=== PATIENT | female | born 1945 | race Caucasian/White ===

== ENCOUNTER → 2016-10-08 | Outpatient (CLI) | payer OTHER ==
[2016-09-02 09:16] VITALS: BP 130/70
[2016-10-08 14:18] LABS: CRYPTOSPORIDIUM PARVUM ANTIGEN NEGATIVE (NEGATIVE); GIARDIA LAMBLIA ANTIGEN NEGATIVE (NEGATIVE)
== END ==
LOC: LAB 12:00
PROVIDERS: ATTEND Internal Medicine
DX: R19.5 Other fecal abnormalities (principal); R19.7 Diarrhea, unspecified
CPT/HCPCS: 82270; 87045; 87205; 87328; 87329; 87336; 87427; 87493; 87899

== ENCOUNTER 2016-11-26 21:52 | Emergency (ER) | payer OTHER ==
[2016-11-26 22:02] VITALS: BP 159/82; BMI 33.3
--- NOTE | 2016-11-26 22:24 | DR.NAUSEAF ---
HPI - Time Seen Time seen: 22:13 - Primary Care Physician Primary Care Physician: HELDER - HPI Comment HPI Comment: SIMILAR PAIN ON AND OFF. TONIGHT PAIN SEVERE AND PERSISTED LONGER. IMPROVE SLIGHTLY AFTER PATIENT VOMITED TIMES ONE IN ED. NO FEVER. NO MELENA OR HEMATEMESIS. DENIES DYSURIA. - Complaints Chief Complaint Doctors Comments: ABDOMINAL PAIN, NAUSEA AND VOMITING TONIGHT. Chief Complaint:: "HURTING IN STOMACH AND CHEST FOR LAST 3-4 HOURS. CHILLS, AND NAUSEA VOMITING STARTED WHEN WE GOT HERE. HAS BEEN TREATING HER FOR ACID REFLUX." - Reviewed Nurses Notes Reviewed: Yes - Source History Provided: Patient - Mode of Arrival Mode of Arrival: Wheelchair - Timing Onset of Chief Complaint: 11/26/16 - Context History of: Abdominal Operation - Quality Quality: Bilious - Associated Signs and Symptoms Abdominal Pain Quality: Cramping Symptoms: Abdominal Pain PMH - PMH Past Medical History: Yes Past Medical History: Anxiety, CVA, Dementia, GERD, Hypertension, Hypothyroidism , [place] Past Surgical History: Yes Surgical History: Appendectomy, Cholecystectomy, Hysterectomy, Joint Replacement , Ortho Surgery, Tonsillectomy - Family History History of Family Medical Conditions: Yes Family Medical History: [place], Coronary Artery Disease, Sudden Cardiac , Hypertension - Social History Does patient currently use any type of tobacco product: No Have you used tobacco products in the last 12 months: No Type of Tobacco Use: None Alcohol Use: None Do you use any recreational Drugs:: No Lives With: Spouse Lives Where: Home - infectious screening Have you traveled outside the country in the last 6 months?: No Isolation: Standard ROS - Review of Systems Constitutional: Chills, Weakness, Fatigue. negative: Diaphoresis, Fever, Loss of Appetite Eyes: No Symptoms Reported. negative: Eye Pain, Discharge ENTM: Nose Congestion. negative: Ear Pain, Nose Discharge, Throat Pain Respiratoy: Short of Breath. negative: Productive Cough, Wheezing, Hemoptysis Cardiovascular: Chest Pain. negative: Edema, Palpitations, Syncope Gastrointestinal/Abdominal: Abdominal Pain, Nausea, Vomiting. negative: Diarrhea Genitourinary: No Symptoms Reported. negative: Dysuria, Frequency, Hematuria Neurological: Headache, Weakness. negative: Dizziness Musculoskeletal: Back Pain, Joint Swelling, Muscle Pain Integumentary: No Symptoms Reported Hematologic/Lymphatic: No Symptoms Reported Endocrine: No Symptoms Reported All Other Systems: Reviewed and Negative PE - Vital Signs Vitals: Temperature 98.2 F Pulse Rate 100 Respiratory Rate 18 Blood Pressure [Right Arm] 130/70 Blood Pressure [Left Arm] 147/81 Blood Pressure 159/82 O2 Sat by Pulse Oximetry 100 - General Limitations: No Limitations General Appearance: Alert, In No Apparent Distress - Head Head Exam: Normal Inspection - Eyes Eye exam: Normal Appearance, PERRL, EOMI. negative: Scleral Icterus, Conjunctival Injection - ENT ENT Exam: Normal External Ear Exam - Neck Neck Exam: Trachea Midline. negative: Tenderness, Meningismus, Lymphadenopathy - Chest Chest Inspection: Symmetric Chest Wall Rise - Respiratory Respiratory Exam: Normal Lung Sounds Bilat Respiratory Exam: Bilateral Rhonchi, Upper Rhonchi, Lower Rhonchi - Cardiovascular Cardiovascular Exam: Regular Rate, Normal Rhythm, Normal Heart Sounds - Abdominal Exam Abdominal Exam: Normal Bowel Sounds, Soft, Tenderness Abdominal Tenderness: Diffuse, Moderate - Rectal Rectal Exam: Deferred - External Exam: Female: Deferred : Speculum Exam (Female): Deferred : Bimanual Exam (female): Deferred - Extremities Extremities Exam: Normal Inspection - Back Back Exam: Paraspinal Tenderness - Neurologic Neurological Exam: Alert, Oriented X3, CN II-XII Intact, Reflexes Normal. negative: Motor Sensory Deficit - Psychiatric Psychiatric Exam: Anxious - Skin Skin Exam: Normal Color MDM - Additional Information Obtained Additional Information Obtained From: Family - Differential Diagnosis Differential Diagnosis: Considerations may Include:: Bowel Obstruction, Gastritis, Gastroenteritis, Pancreatitis, PUD, Urinary Tract Infection, Urolithiasis Course - Treatment Treatment: SEE ORDERS - Education/Counseling Education/Counseling: Patient, Family, Education Educated On: Treatment, Diagnosis, Needs for Follow Up ROR - Labs Reviewed Laboratory Results Reviewed?: Yes Result Diagrams: 11/26/16 22:32 11/26/16 22:32 Laboratory: WBC 8.5 X10^3/uL (3.6-10.0) 11/26/16 22:32 RBC 3.44 X10^6/uL (3.5-5.4) L 11/26/16 22:32 Hgb 9.6 g/dL (12.0-16.0) L 11/26/16 22:32 Hct 29.0 % (36.0-47.0) L 11/26/16 22:32 MCV 84.2 fL (80.0-100.0) 11/26/16 22: MCH 27.8 pg (27.0-34.0) 11/26/16 22: MCHC 33.0 g/dL (33.0-35.0) 11/26/16 22:32 RDW 15.4 % (11.6-16.5) 11/26/16 22:32 Plt Count 232 X10^3/uL (150.0-450.0) 11/26/16 22:32 MPV 8.6 fL (7.4-11.0) 11/26/16 22:32 Neut % 87.2 % (42.0-75.0) H 11/26/16 22: Lymph % 7.8 % (21.0-51.0) L 11/26/16 22:32 [place] % 3.5 % (0.0-13.0) 11/26/16 22: Eos % 1.2 % (0.9-2.9) 11/26/16 22: Baso % 0.3 % (0.2-1.0) 11/26/16 22:32 Neut # 7.4 x10^3/uL (2.2-4.8) H 11/26/16 22:32 Lymph # 0.7 X10^3/uL (1.3-2.9) L 11/26/16 22:32 [place] # 0.3 x10^3/uL (0.3-0.8) 11/26/16 22: Eos # 0.1 x10^3/uL (0.0-0.2) 11/26/16 22: Baso # 0.0 X10^3/uL (0.0-0.1) 11/26/16 22: Absolute Nucleated RBC 0.0 /100WBC 11/26/16 22:32 Sodium 143 mmol/L (136-145) 11/26/16 22:32 Corrected Sodium 144 mmol/L (136-145) 11/26/16 22:32 Potassium 4.6 mmol/L (3.5-5.1) 11/26/16 22:32 Chloride 107 mmol/L (98-107) 11/26/16 22:32 Carbon Dioxide 25.6 mmol/L (21-32) 11/26/16 22:32 BUN 20 mg/dL (7-18) H 11/26/16 22:32 Creatinine 1.44 mg/dL (0.55-1.02) H 11/26/16 22:32 Est GFR (MDRD) Af Amer 46 (>60) L 11/26/16 22:32 Est GFR (MDRD) Non-Af 38 (>60) L 11/26/16 22:32 Glucose 126 mg/dL (65-99) H 11/26/16 22:32 Calcium 8.7 mg/dL (8.5-10.1) 11/26/16 22:32 Corrected Calcium 9.3 mg/dL (8.5-10.1) 11/26/16 22:32 Total Bilirubin 1.00 mg/dL (0.2-1.0) 11/26/16 22:32 AST 313 Units/L (15-37) H 11/26/16 22:32 ALT 202 Units/L (12-78) H 11/26/16 22:32 Alkaline Phosphatase 348 Units/L (46-116) H 11/26/16 22:32 Creatine Kinase 37 Units/L (26-192) 11/26/16 22:32 CK-MB (CK-2) < 1.0 ng/mL (0-4.0) 11/26/16 22:32 CK/CKMB % Calc 2.7 % (<4) 11/26/16 22:32 Troponin I < 0.02 ng/mL (0-1.5) 11/26/16 22:32 Total Protein 7.0 g/dL (6.4-8.2) 11/26/16 22:32 Albumin 3.3 g/dL (3.4-5.0) L 11/26/16 22:32 Globulin 3.7 g/dL (2.5-4.5) 11/26/16 22:32 Albumin/Globulin Ratio 0.9 Ratio (1.1-2.1) L 11/26/16 22:32 Amylase 35 Units/L (25-115) 11/26/16 22:32 Lipase 70 Units/L (73-393) L 11/26/16 22:32 - XRAY XRAY Interpreted by: Radiologist XRAY Findings: REPORT DISCUSS WITH PATIENT ANED . - EKG Rhythm: NSR (EKG NOTED) - Diagnosis Discharge Problem: Abdominal pain, Chest pain - Discharge Plan Disposition: 01 HOME, SELF-CARE Condition: Stable - Follow ups/Referrals Follow ups/Referrals: Joe Kimble [Primary Care Provider] - 1 day - Instructions Instructions: Chest Pain Observation, Abdominal Pain, Adult, [id number] Additional Instructions: RETURN TO ED IF WORSE.
[2016-11-26 22:47] LABS: BASOPHILS % (AUTO) 0.3 % (0.2-1.0); EOSINOPHILS # (AUTO) 0.1 x10^3/uL (0.0-0.2); EOSINOPHILS % (AUTO) 1.2 % (0.9-2.9); HEMOGLOBIN 9.6 g/dL (12.0-16.0); LYMPHOCYTES # (AUTO) 0.7 X10^3/uL (1.3-2.9); LYMPHOCYTES % (AUTO) 7.8 % (21.0-51.0); MEAN CORPUSCULAR HEMOGLOBIN 27.8 pg (27.0-34.0); MEAN CORPUSCULAR VOLUME 84.2 fL (80.0-100.0); MEAN PLATELET VOLUME 8.6 fL (7.4-11.0); MONOCYTES # (AUTO) 0.3 x10^3/uL (0.3-0.8); MONOCYTES % (AUTO) 3.5 % (0.0-13.0); NEUTROPHILS # (AUTO) 7.4 x10^3/uL (2.2-4.8); NEUTROPHILS % (AUTO) 87.2 % (42.0-75.0); PLATELET COUNT 232 X10^3/uL (150.0-450.0); RED BLOOD COUNT 3.44 X10^6/uL (3.5-5.4); RED CELL DISTRIBUTION WIDTH 15.4 % (11.6-16.5); WHITE BLOOD COUNT 8.5 X10^3/uL (3.6-10.0)
[2016-11-26 23:03] LABS: BLOOD UREA NITROGEN 20 mg/dL (7-18); CALCIUM 8.7 mg/dL (8.5-10.1); CARBON DIOXIDE 25.6 mmol/L (21-32); CHLORIDE 107 mmol/L (98-107); COR NA(FOR HYPERGLY) 144 mmol/L (136-145); CREATININE 1.44 mg/dL (0.55-1.02); GLUCOSE 126 mg/dL (65-99); SODIUM 143 mmol/L (136-145); TROPONIN I < 0.02 ng/mL (0-1.5); eGFR BLACK RACES 46 (>60); eGFR NON BLACK RACES 38 (>60)
[2016-11-26 23:07] LABS: ALANINE AMINOTRANSFERASE 202 Units/L (12-78); ALBUMIN 3.3 g/dL (3.4-5.0); ALKALINE PHOSPHATASE 348 Units/L (46-116); AMYLASE 35 Units/L (25-115); ASPARTATE AMINO TRANSFERASE 313 Units/L (15-37); CKMB % 2.7 % (<4); COR CA(FOR HYPOALB) 9.3 mg/dL (8.5-10.1); CREATINE KINASE 37 Units/L (26-192); CREATINE KINASE MB < 1.0 ng/mL (0-4.0); LIPASE 70 Units/L (73-393)
--- NOTE | 2016-11-26 23:12 | CT ---
EXAM: CT ABDOMEN AND PELVIS WITHOUT CONTRAST INDICATION: Abdominal pain COMPARISION: No priors available for comparison TECHNIQUE: Axial CT examination of the abdomen and pelvis was performed without intravenous contrast. Coronal a nd sagittal reconstructions were created using the axial data. FINDINGS: The lung bases are clear. The liver, spleen, pancreas, adrenal glands, and kidneys are normal. The g allbladder has been removed. There is no evidence of biliary ductal dilatation. The aorta and infer ior vena cava are normal in caliber. The bowel loops are nonobstructed. No abnormal mass, lymphadenopathy, or fluid collection. Urinary bladder is normal. The appendix and uterus have been removed. There is colonic diverticulos is. The regional skeleton is intact. IMPRESSION: There is colonic diverticulosis. No acute abnormality identified. Reported By:
--- NOTE | 2016-11-26 23:13 | RAD ---
EXAM: Chest X-ray INDICATION: Chest pain COMPARISION: Prior exam from August 31, 2016 TECHNIQUE: Single view FINDINGS: The lungs are clear and the lung volumes are within normal limits. No pleural effusion or pneumothor ax. The cardiac silhouette and mediastinum are normal. The regional skeleton is intact. IMPRESSION: No acute abnormality identified Reported By:
== END 2016-11-26 23:34 | disposition home or self-care (01) ==
LOC: ER 22:07
DX: R07.89 Other chest pain (principal); R10.84 Generalized abdominal pain
CPT/HCPCS: 36415; 71010; 74176; 80053; 82150; 82550; 82553; 83690; 84484; 85025; 93005; 93010; 99283

== ENCOUNTER 2016-11-30 07:42 | Inpatient (IN) | payer OTHER ==
[2016-11-30 07:46] VITALS: BMI 33.3
--- NOTE | 2016-11-30 08:29 | RAD ---
HISTORY: Chest congestion Study: Chest two views Comparison: November 26, 2016, August 31, 2016 Findings: The trachea is midline. The cardiac silhouette is unremarkable. The lungs are clear without focal infiltrate or effusion. The bony thorax is unremarkable. IMPRESSION: 1. No acute cardiopulmonary disease. Reported By:
--- NOTE | 2016-11-30 08:35 | DR.GENAD ---
HPI - PCP Primary Care Physician: HELDER - HPI Comment HPI Comment: PATIENT IS WEAK, SOB ON EXCERSION AND RUNNING FEVER. WORSE TONIGHT. - Complaint/Symptoms Chief Complaint Doctors Comments: PERSISTENT COUGH DIZZINESS, WEAKNESS, CONGESSTION AND CHEST PAIN TIMES 3 DAYS. Chief Complaint:: PT. C/O COUGHING, SNEEZING, CHEST DISCOMFORT, WHEEZING, GENERALIZED WEAKNESS, DIZZINESS THAT BEGAN ON THURSDAY. - Nurses notes reviewed Nurses Notes Review: Yes - Source History Provided: Patient - Mode of Arrival Mode of Arrival: Ambulatory - Timing Onset of Chief Complaint: 11/28/16 Came on: Suddenly - Duration Duration: Constant Duration: Days - Severity Severity: Moderate PMH - PMH Past Medical History: Yes Past Medical History: Anxiety, CVA, Dementia, GERD, Hypertension, Hypothyroidism , [place] Past Surgical History: Yes Surgical History: Appendectomy, Cholecystectomy, Hysterectomy, Joint Replacement , Ortho Surgery, Tonsillectomy - Family History History of Family Medical Conditions: Yes Family Medical History: [place], Coronary Artery Disease, Sudden Cardiac , Hypertension - Social History Does patient currently use any type of tobacco product: No Have you used tobacco products in the last 12 months: No Type of Tobacco Use: None Does any household member use tobacco: No Alcohol Use: None Do you use any recreational Drugs:: No Lives With: Spouse Lives Where: Home - infectious screening In the last 2 months have you had wt loss of >10#?: NO Have you had fever, night sweats or hemotysis?: No Have you traveled outside the country in the last 6 months?: No Isolation: Standard ROS - Review of Systems Constitutional: Fever, Weakness, Fatigue, Loss of Appetite. negative: Chills, Diaphoresis Eyes: No Symptoms Reported. negative: Eye Pain, Discharge ENTM: Nose Discharge, Nose Congestion, Throat Pain. negative: Ear Pain Respiratoy: Productive Cough, Short of Breath, Wheezing. negative: Hemoptysis Cardiovascular: Chest Pain. negative: Edema, Palpitations, Syncope Gastrointestinal/Abdominal: Nausea Genitourinary: No Symptoms Reported. negative: Dysuria, Frequency, Hematuria Neurological: Headache, Weakness, Dizziness Musculoskeletal: Muscle Pain Integumentary: No Symptoms Reported Hematologic/Lymphatic: No Symptoms Reported Endocrine: No Symptoms Reported All Other Systems: Reviewed and Negative PE - Vital Signs Vitals: Temperature 98.1 F Pulse Rate 84 Respiratory Rate 17 Blood Pressure [Right Arm] 130/70 Blood Pressure [Left Arm] 147/81 Blood Pressure 144/86 O2 Sat by Pulse Oximetry 96 - General Limitations: No Limitations General Appearance: Alert - Head Head Exam: Normal Inspection - Eyes Eye exam: Normal Appearance - ENT ENT Exam: Normal External Ear Exam External Ear Exam: Normal External Inspection TM/Canal Exam: Bilateral Bulging Nose Exam: Normal Nose Exam Mouth Exam: Normal Inspection Throat Exam: Normal Inspection - Neck Neck Exam: Trachea Midline - Chest Chest Inspection: Symmetric Chest Wall Rise - Respiratory Respiratory Exam: Normal Lung Sounds Bilat Respiratory Exam: Bilateral Rhonchi, Upper Rhonchi, Lower Rhonchi - Cardiovascular Cardiovascular Exam: Normal Rhythm, Normal Heart Sounds - Abdominal Exam Abdominal Exam: Normal Bowel Sounds, Soft. negative: Tenderness - Extremities Extremities Exam: Normal Inspection - Back Back Exam: Normal Inspection - Neurologic Neurological Exam: Alert, Oriented X3 - Psychiatric Psychiatric Exam: Anxious - Skin Skin Exam: Normal Color MDM - Differential Diagnosis Differential Diagnosis: PNEUMPONIA, BRONCHITIS, CHF, SINUSITIS, PULMONARY EMBOLISM Course - Treatment Treatment: SEE ORDERS, - Education/Counseling Education/Counseling: Patient, Family, Education Educated On: Diagnosis ROR - Labs Reviewed Laboratory Results Reviewed?: Yes Result Diagrams: 12/01/16 03:55 12/01/16 03:55 - XRAY XRAY Interpreted by: Radiologist XRAY Findings: REPORT DISCUSS WITH PATIENT AND HER . - Diagnosis Discharge Problem: Respiratory distress, Weakness Acute bronchitis Qualifiers: Bronchitis organism: other organism Qualified Code(s): J20.8 - Acute bronchitis due to other specified organisms Chest pain Qualifiers: Chest pain type: precordial pain Qualified Code(s): R07.2 - Precordial pain - Discharge Plan Disposition: ADMITTED INPATIENT Condition: Stable - Follow ups/Referrals - Instructions
[2016-11-30] MEDS ORDERED: TUSSIONEX PENNKINETIC SUSP PO ONE (08:38)
[2016-11-30] MEDS ORDERED: TUSSIONEX PENNKINETIC SUSP ONE (09:00)
[2016-11-30 09:13] LABS: BASOPHILS % (AUTO) 0.4 % (0.2-1.0); EOSINOPHILS # (AUTO) 0.2 x10^3/uL (0.0-0.2); EOSINOPHILS % (AUTO) 3.5 % (0.9-2.9); HEMATOCRIT 27.5 % (36.0-47.0); HEMOGLOBIN 9.1 g/dL (12.0-16.0); LYMPHOCYTES # (AUTO) 0.9 X10^3/uL (1.3-2.9); LYMPHOCYTES % (AUTO) 16.6 % (21.0-51.0); MEAN CORPUSCULAR HGB CONC 33.3 g/dL (33.0-35.0); MEAN CORPUSCULAR VOLUME 84.1 fL (80.0-100.0); MEAN PLATELET VOLUME 8.6 fL (7.4-11.0); MONOCYTES # (AUTO) 0.5 x10^3/uL (0.3-0.8); MONOCYTES % (AUTO) 8.4 % (0.0-13.0); NEUTROPHILS % (AUTO) 71.1 % (42.0-75.0); PLATELET COUNT 212 X10^3/uL (150.0-450.0); RED BLOOD COUNT 3.27 X10^6/uL (3.5-5.4); RED CELL DISTRIBUTION WIDTH 15.5 % (11.6-16.5); WHITE BLOOD COUNT 5.6 X10^3/uL (3.6-10.0)
[2016-11-30 09:28] LABS: BLOOD UREA NITROGEN 18 mg/dL (7-18); CALCIUM 8.5 mg/dL (8.5-10.1); CARBON DIOXIDE 25.1 mmol/L (21-32); CHLORIDE 105 mmol/L (98-107); COR NA(FOR HYPERGLY) 141 mmol/L (136-145); CREATININE 1.49 mg/dL (0.55-1.02); GLUCOSE 114 mg/dL (65-99); SODIUM 141 mmol/L (136-145); TROPONIN I < 0.02 ng/mL (0-1.5); eGFR BLACK RACES 44 (>60); eGFR NON BLACK RACES 37 (>60)
[2016-11-30 09:28] LABS: BILIRUBIN,URINE NEGATIVE (NEGATIVE); BLOOD/HEMOGLOBIN,URINE NEGATIVE (NEGATIVE); GLUCOSE, URINE NEGATIVE (NEGATIVE); KETONES,URINE NEGATIVE (NEGATIVE); LEUKOCYTE ESTERASE ,URINE 1+ (NEGATIVE); NITRITES,URINE NEGATIVE (NEGATIVE); PROTEIN,URINE NEGATIVE (NEGATIVE); UROBILINOGEN,URINE NORMAL (NORMAL)
[2016-11-30 09:32] LABS: ALANINE AMINOTRANSFERASE 115 Units/L (12-78); ALBUMIN 3.1 g/dL (3.4-5.0); ALKALINE PHOSPHATASE 256 Units/L (46-116); ASPARTATE AMINO TRANSFERASE 40 Units/L (15-37); COR CA(FOR HYPOALB) 9.2 mg/dL (8.5-10.1); CREATINE KINASE 32 Units/L (26-192); CREATINE KINASE MB < 1.0 ng/mL (0-4.0); TOTAL PROTEIN 6.7 g/dL (6.4-8.2)
[2016-11-30 09:34] LABS: APPEARANCE,URINE HAZY (CLEAR); BACTERIA,URINE TRACE /HPF (NEGATIVE); COLOR,URINE YELLOW (YELLOW); RBC,URINE 0-2 /HPF (NEGATIVE); SQUAMOUS EPITHELIAL CELL,UR RARE /HPF (NEGATIVE)
[2016-11-30 09:41] LABS: CKMB % 3.1 % (<4)
[2016-11-30 10:05] LABS: D DIMER 2280 ng/mL (0-400)
[2016-11-30] MEDS ORDERED: NS 100 ML IV 100 ML IV ONE (10:12)
[2016-11-30] MEDS ORDERED: NS 50 ML IV + SPIKE MINIBAG* 50 ML IV ONE (10:34)
[2016-11-30] MEDS ORDERED: ROCEPHIN VIAL 1 GM ONE (10:34)
[2016-11-30] MEDS ORDERED: ROCEPHIN VIAL 2 GM ONE (10:36)
[2016-11-30 11:08] LABS: B-TYPE NATRIURETIC PEPTIDE 58 pg/mL (0-79)
[2016-11-30 11:27] LABS: AMYLASE 41 Units/L (25-115); LIPASE 72 Units/L (73-393)
[2016-11-30] MEDS: NS 1000 ML 1,000 ML IV SCH ×2 (12:07→23:45)
[2016-11-30] MEDS: DUONEB 0.5 MG/3 MG NEB SCH ×2 (12:10→17:11)
[2016-11-30] MEDS: LEVAQUIN TAB 500 MG PO SCH (13:04)
[2016-11-30 16:11] LABS: CREATINE KINASE 38 Units/L (26-192); CREATINE KINASE MB < 1.0 ng/mL (0-4.0); TROPONIN I < 0.02 ng/mL (0-1.5)
[2016-11-30 16:44] LABS: CKMB % 2.6 % (<4)
[2016-11-30] MEDS: TUSSIONEX PENNKINETIC SUSP PO PRN (21:27)
[2016-11-30 22:40] LABS: CREATINE KINASE 49 Units/L (26-192); CREATINE KINASE MB < 1.0 ng/mL (0-4.0); TROPONIN I < 0.02 ng/mL (0-1.5)
[2016-11-30] MEDS ORDERED: RESTORIL CAP 15 MG PO PRN (23:40)
[2016-12-01] MEDS: DUONEB 0.5 MG/3 MG NEB SCH ×4 (00:55→17:23)
[2016-12-01] MEDS: NS 1000 ML 1,000 ML IV SCH ×2 (01:53→18:29)
[2016-12-01 05:23] LABS: BASOPHILS % (AUTO) 0.4 % (0.2-1.0); EOSINOPHILS # (AUTO) 0.3 x10^3/uL (0.0-0.2); EOSINOPHILS % (AUTO) 6.5 % (0.9-2.9); HEMATOCRIT 26.9 % (36.0-47.0); LYMPHOCYTES # (AUTO) 1.2 X10^3/uL (1.3-2.9); LYMPHOCYTES % (AUTO) 30.7 % (21.0-51.0); MEAN CORPUSCULAR HEMOGLOBIN 28.6 pg (27.0-34.0); MEAN CORPUSCULAR HGB CONC 33.6 g/dL (33.0-35.0); MEAN CORPUSCULAR VOLUME 85.1 fL (80.0-100.0); MEAN PLATELET VOLUME 8.7 fL (7.4-11.0); MONOCYTES # (AUTO) 0.4 x10^3/uL (0.3-0.8); MONOCYTES % (AUTO) 9.8 % (0.0-13.0); NEUTROPHILS % (AUTO) 52.6 % (42.0-75.0); PLATELET COUNT 196 X10^3/uL (150.0-450.0); RED BLOOD COUNT 3.17 X10^6/uL (3.5-5.4); WHITE BLOOD COUNT 3.9 X10^3/uL (3.6-10.0)
[2016-12-01 05:28] LABS: ALANINE AMINOTRANSFERASE 86 Units/L (12-78); ALBUMIN 2.9 g/dL (3.4-5.0); ALKALINE PHOSPHATASE 229 Units/L (46-116); ASPARTATE AMINO TRANSFERASE 32 Units/L (15-37); BLOOD UREA NITROGEN 11 mg/dL (7-18); CALCIUM 8.8 mg/dL (8.5-10.1); CARBON DIOXIDE 25.2 mmol/L (21-32); CHLORIDE 108 mmol/L (98-107); COR CA(FOR HYPOALB) 9.7 mg/dL (8.5-10.1); GLUCOSE 99 mg/dL (65-99); SODIUM 143 mmol/L (136-145); TOTAL PROTEIN 6.6 g/dL (6.4-8.2); eGFR BLACK RACES > 60 (>60); eGFR NON BLACK RACES 52 (>60)
[2016-12-01] MEDS: LEVAQUIN TAB 500 MG PO SCH ×2 (09:30→12:05)
[2016-12-01] MEDS ORDERED: ALPRAZOLAM 2 MG PO PRN (11:33)
[2016-12-01] MEDS ORDERED: FERROUS SULFATE PO SCH (12:00)
[2016-12-01] MEDS: COREG TAB 12.5 MG PO SCH ×2 (12:05→21:09)
[2016-12-01] MEDS: LIPITOR TAB 40 MG PO SCH (12:06)
[2016-12-01] MEDS: PLAVIX PO SCH (12:06)
[2016-12-01] MEDS: ZESTRIL TAB 10 MG PO SCH (12:06)
[2016-12-01] MEDS: VITAMIN B-12 PO SCH (12:06)
[2016-12-01] MEDS: TOVIAZ PO SCH (12:06)
[2016-12-01] MEDS: CARAFATE SUSP 1 GM/10 ML PO SCH ×3 (12:07→21:08)
[2016-12-01] MEDS: ROBITUSSIN DM PO SCH ×3 (12:07→21:08)
[2016-12-01] MEDS: TUSSIONEX PENNKINETIC SUSP PO PRN (13:45)
[2016-12-01] MEDS: SOLU-Medrol 40 MG VIAL IVP SCH ×2 (14:30→21:08)
--- NOTE | 2016-12-01 14:48 | NM ---
HISTORY: Dyspnea Study: Nuclear Medicine Ventilation Perfusion Study Comparison: Chest x-ray dated November 30, 2016. Technique: After the administration of 5.6 mCi of technetium 99m MAA followed by inhalation of 25.5 mCi of technetium 99m DTPA, anterior, posterior, and lateral perfusion and ventilation images were submitted. Findings: Evaluation of perfusion physiology demonstrates no significant segmental or subsegmental defect to s uggest pulmonary embolus. Likewise, ventilation physiology demonstrates no significant segmental or subsegmental defect to suggest pulmonary embolus within the right and left hemithorax. IMPRESSION: 1. Very low probability. Reported By:
[2016-12-01] MEDS ORDERED: ARICEPT TAB 5 MG PO SCH (21:00)
[2016-12-01] MEDS: ZANTAC PO SCH (21:09)
[2016-12-01] MEDS: XANAX PO SCH (21:09)
[2016-12-01] MEDS: SYNTHROID 50 mcg TAB PO SCH (21:09)
[2016-12-01] MEDS: ARICEPT TAB 10 MG PO SCH (21:14)
[2016-12-02] MEDS: DUONEB 0.5 MG/3 MG NEB SCH ×4 (01:06→16:56)
[2016-12-02 05:12] LABS: ALANINE AMINOTRANSFERASE 72 Units/L (12-78); ALBUMIN 2.7 g/dL (3.4-5.0); ALKALINE PHOSPHATASE 204 Units/L (46-116); ASPARTATE AMINO TRANSFERASE 28 Units/L (15-37); BLOOD UREA NITROGEN 15 mg/dL (7-18); CALCIUM 8.7 mg/dL (8.5-10.1); CARBON DIOXIDE 21.9 mmol/L (21-32); CHLORIDE 110 mmol/L (98-107); COR CA(FOR HYPOALB) 9.7 mg/dL (8.5-10.1); COR NA(FOR HYPERGLY) 144 mmol/L (136-145); CREATININE 1.08 mg/dL (0.55-1.02); GLUCOSE 146 mg/dL (65-99); SODIUM 143 mmol/L (136-145); TOTAL PROTEIN 6.5 g/dL (6.4-8.2); eGFR BLACK RACES > 60 (>60); eGFR NON BLACK RACES 53 (>60)
[2016-12-02] MEDS: NS 1000 ML 1,000 ML IV SCH (05:29)
[2016-12-02] MEDS: SOLU-Medrol 40 MG VIAL IVP SCH ×3 (05:30→21:33)
--- NOTE | 2016-12-02 06:27 | RAD ---
HISTORY: Bronchitis Study: Chest one view Comparison: November 30, 2016 Findings: The trachea is midline. The cardiac silhouette is unremarkable. The aorta is calcified. The lungs are clear without focal infiltrate or effusion. The bony thorax is unremarkable. IMPRESSION: 1. No acute cardiopulmonary disease. Reported By:
[2016-12-02 07:13] LABS: BASOPHILS % (AUTO) 0.1 % (0.2-1.0); HEMATOCRIT 28.3 % (36.0-47.0); HEMOGLOBIN 9.4 g/dL (12.0-16.0); LYMPHOCYTES # (AUTO) 0.8 X10^3/uL (1.3-2.9); LYMPHOCYTES % (AUTO) 13.1 % (21.0-51.0); MEAN CORPUSCULAR HEMOGLOBIN 28.2 pg (27.0-34.0); MEAN CORPUSCULAR HGB CONC 33.4 g/dL (33.0-35.0); MEAN CORPUSCULAR VOLUME 84.5 fL (80.0-100.0); MEAN PLATELET VOLUME 8.3 fL (7.4-11.0); MONOCYTES # (AUTO) 0.1 x10^3/uL (0.3-0.8); NEUTROPHILS # (AUTO) 5.3 x10^3/uL (2.2-4.8); NEUTROPHILS % (AUTO) 84.8 % (42.0-75.0); PLATELET COUNT 221 X10^3/uL (150.0-450.0); RED BLOOD COUNT 3.35 X10^6/uL (3.5-5.4); RED CELL DISTRIBUTION WIDTH 15.6 % (11.6-16.5); WHITE BLOOD COUNT 6.2 X10^3/uL (3.6-10.0)
[2016-12-02] MEDS: TUSSIONEX PENNKINETIC SUSP PO PRN ×2 (08:09→21:32)
[2016-12-02] MEDS: ROBITUSSIN DM PO SCH ×4 (09:37→21:32)
[2016-12-02] MEDS: LEVAQUIN PREMIX IV 500 MG 500 MG/100 ML BAG IV SCH (09:37)
[2016-12-02] MEDS: TOVIAZ PO SCH (09:38)
[2016-12-02] MEDS: CARAFATE SUSP 1 GM/10 ML PO SCH ×4 (09:38→21:33)
[2016-12-02] MEDS: LIPITOR TAB 40 MG PO SCH (09:38)
[2016-12-02] MEDS: ZANTAC PO SCH ×2 (09:38→21:32)
[2016-12-02] MEDS: COREG TAB 12.5 MG PO SCH ×2 (09:38→21:32)
[2016-12-02] MEDS: VITAMIN B-12 PO SCH (09:38)
[2016-12-02] MEDS: ZESTRIL TAB 10 MG PO SCH (09:39)
[2016-12-02] MEDS: MAXZIDE 37.5/25 MG PO SCH (09:39)
[2016-12-02] MEDS: PLAVIX PO SCH (09:40)
[2016-12-02] MEDS ORDERED: NS 100 ML IV 100 ML IV ONE (14:14)
--- NOTE | 2016-12-02 15:23 | PCM.PROG ---
Progress Note - Progress Note for Day of Date: 12/01/16 - Subjective Subjective: Patient is a 71 yo white female who presented to the ER on 11/30 with complains of chest tightness and shortness of breath, patient also had an elevated BUN and creatinine. Patient was admitted with diagnosis of resp distress, chest pain and acute bronchitis. Patient states she is feeling better this am but still having an cough and shortness of breath. Upon auscultation of lungs patient is noted to have RUL wheezing. We are going to start her on solumedrol 40mg Iv Q8hr change levaquin to IV instead of PO and repeat labs and chest xray in the am. VQ scan was negatuve as well as chexray. Labs are normal with the exception of RBC 3.17, Hgb 9.0, Hct 26.9, Eos% 6.5, Neut# 2.0, Lymph # 1.2, Chloride 108, Creatinine 1.10, GFR 52, ALT 229, Alkaline Phosphate 229, Albumin 2.9, Lipase 72. Cardiac enzymes and EKG have remained normal. - Past Medical Family Social History Past Med/Fam/Surg Hx: No changes since H&P Allergies: Allergies Aspirin Allergy (Severe, Verified 11/30/16 12:52) ANAPHALEXIS REACTION Ceftriaxone [From Rocephin] Allergy (Verified 11/30/16 12:52) Penicillin G Allergy (Verified 11/30/16 12:52) Sulfa Drugs Allergy (Verified 11/30/16 12:52) - Review of Systems ROS: No change since H&P - Vital Signs and I&O's Vital Signs: Temperature 97.8 F Pulse Rate [Right Brachial] 74 Pulse Rate 83 Respiratory Rate 18 Blood Pressure [Right Arm] 190/96 Blood Pressure [Left Arm] 187/84 O2 Sat by Pulse Oximetry 94 Intake and Output: Intake & Output 11/30/16 12/01/16 12/02/16 12/03/16 11:59 11:59 11:59 11:59 Intake Total 2398 1450 240 Output Total 300 Balance 2098 1450 240 - Physical Exam Oriented: Normal Eyes: Normal Ear: Normal Nose: Normal Throat: Red, Dry Respiratory: Wheezes (RUL) Cardiovascular: Normal : Normal Auscultation: Bowel Sounds: Normal Palpation: Normal Tenderness: Normal Skin: Normal (pale) Musculoskeletal: Normal Psychiatric: Normal Mood Description: Calm Affect: Normal Speech Pattern: Clear, Appropriate - Laboratory and Diagnostics Result Diagrams: 12/02/16 07:03 12/02/16 04:00 Labs: Labs are normal with the exception of RBC 3.17, Hgb 9.0, Hct 26.9, Eos% 6.5, Neut# 2.0, Lymph # 1.2, Chloride 108, Creatinine 1.10, GFR 52, ALT 229, Alkaline Phosphate 229, Albumin 2.9, Lipase 72. Cardiac enzymes and EKG have remained normal. Rhythm: NSR - Plan (1) Acute bronchitis Status: Acute Qualifiers: Bronchitis organism: other organism Qualified Code(s): J20.8 - Acute bronchitis due to other specified organisms Plan: jet nebs, solumendrol and levaquin (2) Chest pain Status: Acute Qualifiers: Chest pain type: precordial pain Ischemic chest pain type: I Qualified Code(s): R07.2 - Precordial pain Plan: continue to monitor (3) Respiratory distress Status: Acute Plan: jet nebs, supplemental oxygen (4) Anxiety Status: Chronic Plan: resume home medications (5) Hypothyroidism Status: Chronic Qualifiers: Hypothyroidism type: acquired Qualified Code(s): E03.9 - Hypothyroidism, unspecified Plan: resume home medications
--- NOTE | 2016-12-02 15:31 | PCM.PROG ---
Progress Note - Progress Note for Day of Date: 12/02/16 - Subjective Subjective: Patient is a 71 yo white female who presented to the ER on 11/30 with complains of chest tightness and shortness of breath, patient also had an elevated BUN and creatinine. Patient was admitted with diagnosis of resp distress, chest pain and acute bronchitis. Patient states she is feeling better this am she said her cough has improved with robitussin and tussionex, her shorness of breath has also imrpoved. her liver enzymes continue to be elevated so we are ordering a CT of the abdomen with contrast with special attention to the liver. Patient is still noted to have RUL wheezing on ausculatation to lungs. Chest Xray this is shows no cardiopulmonary disease. We will follow up in the am with repeat labs and results of ct. Labs are within normal limits with the exception of RBC 3.35, Hgb 9.4, Hct 28.3, Neut% 84.8, Lymph% 13.1, Eos % 0.0, Baso% 0.1, Neut# 5.3, Lymph# 0.8, [place]# 0.1, Chloride 110, Creatinine 1.08, Est GFR 53, Glucose 146, Alkaline Phosphate 204, Albumin 2.7 - Past Medical Family Social History Past Med/Fam/Surg Hx: No changes since H&P Allergies: Allergies Aspirin Allergy (Severe, Verified 11/30/16 12:52) ANAPHALEXIS REACTION Ceftriaxone [From Rocephin] Allergy (Verified 11/30/16 12:52) Penicillin G Allergy (Verified 11/30/16 12:52) Sulfa Drugs Allergy (Verified 11/30/16 12:52) - Review of Systems ROS: No change since H&P - Vital Signs and I&O's Vital Signs: Temperature 97.8 F Pulse Rate [Right Brachial] 74 Pulse Rate 83 Respiratory Rate 18 Blood Pressure [Right Arm] 190/96 Blood Pressure [Left Arm] 187/84 O2 Sat by Pulse Oximetry 94 Intake and Output: Intake & Output 11/30/16 12/01/16 12/02/16 12/03/16 11:59 11:59 11:59 11:59 Intake Total 2398 1450 240 Output Total 300 Balance 2098 1450 240 - Physical Exam Oriented: Normal Eyes: Normal Ear: Normal Nose: Normal Throat: Red, Dry Respiratory: Wheezes (RUL) Cardiovascular: Normal : Normal Auscultation: Bowel Sounds: Normal Tenderness: Normal Skin: Normal (pale) Musculoskeletal: Normal Psychiatric: Normal Mood Description: Calm Affect: Normal Speech Pattern: Clear, Appropriate - Laboratory and Diagnostics Result Diagrams: 12/02/16 07:03 12/02/16 04:00 Labs: Laboratory WBC 6.2 X10^3/uL (3.6-10.0) 12/02/16 07:03 RBC 3.35 X10^6/uL (3.5-5.4) L 12/02/16 07:03 Hgb 9.4 g/dL (12.0-16.0) L 12/02/16 07:03 Hct 28.3 % (36.0-47.0) L 12/02/16 07:03 MCV 84.5 fL (80.0-100.0) 12/02/16 07:03 MCH 28.2 pg (27.0-34.0) 12/02/16 07:03 MCHC 33.4 g/dL (33.0-35.0) 12/02/16 07:03 RDW 15.6 % (11.6-16.5) 12/02/16 07:03 Plt Count 221 X10^3/uL (150.0-450.0) 12/02/16 07:03 MPV 8.3 fL (7.4-11.0) 12/02/16 07:03 Neut % 84.8 % (42.0-75.0) H 12/02/16 07:03 Lymph % 13.1 % (21.0-51.0) L 12/02/16 07:03 [place] % 2.0 % (0.0-13.0) 12/02/16 07:03 Eos % 0.0 % (0.9-2.9) L 12/02/16 07:03 Baso % 0.1 % (0.2-1.0) L 12/02/16 07:03 Neut # 5.3 x10^3/uL (2.2-4.8) H 12/02/16 07:03 Lymph # 0.8 X10^3/uL (1.3-2.9) L 12/02/16 07:03 [place] # 0.1 x10^3/uL (0.3-0.8) L 12/02/16 07:03 Eos # 0.0 x10^3/uL (0.0-0.2) 12/02/16 07:03 Baso # 0.0 X10^3/uL (0.0-0.1) 12/02/16 07:03 Absolute Nucleated RBC 0.0 /100WBC 12/02/16 07:03 D-Dimer 2280 ng/mL (0-400) H* 11/30/16 08:56 Sodium 143 mmol/L (136-145) 12/02/16 04:00 Corrected Sodium 144 mmol/L (136-145) 12/02/16 04:00 Potassium 4.4 mmol/L (3.5-5.1) 12/02/16 04:00 Chloride 110 mmol/L (98-107) H 12/02/16 04:00 Carbon Dioxide 21.9 mmol/L (21-32) 12/02/16 04:00 BUN 15 mg/dL (7-18) 12/02/16 04:00 Creatinine 1.08 mg/dL (0.55-1.02) H 12/02/16 04:00 Est GFR (MDRD) Af Amer > 60 (>60) 12/02/16 04:00 Est GFR (MDRD) Non-Af 53 (>60) L 12/02/16 04:00 Glucose 146 mg/dL (65-99) H 12/02/16 04:00 Calcium 8.7 mg/dL (8.5-10.1) 12/02/16 04:00 Corrected Calcium 9.7 mg/dL (8.5-10.1) 12/02/16 04:00 Total Bilirubin 0.30 mg/dL (0.2-1.0) 12/02/16 04:00 AST 28 Units/L (15-37) 12/02/16 04:00 ALT 72 Units/L (12-78) 12/02/16 04:00 Alkaline Phosphatase 204 Units/L (46-116) H 12/02/16 04:00 Creatine Kinase 49 Units/L (26-192) 11/30/16 21:52 CK-MB (CK-2) < 1.0 ng/mL (0-4.0) 11/30/16 21:52 CK/CKMB % Calc 2.0 % (<4) 11/30/16 21:52 Troponin I < 0.02 ng/mL (0-1.5) 11/30/16 21:52 B-Natriuretic Peptide 58 pg/mL (0-79) 11/30/16 08:56 Total Protein 6.5 g/dL (6.4-8.2) 12/02/16 04:00 Albumin 2.7 g/dL (3.4-5.0) L 12/02/16 04:00 Globulin 3.8 g/dL (2.5-4.5) 12/02/16 04:00 Albumin/Globulin Ratio 0.7 Ratio (1.1-2.1) L 12/02/16 04:00 Amylase 41 Units/L (25-115) 11/30/16 09:15 Lipase 72 Units/L (73-393) L 11/30/16 09:15 Specimen Type Clean catch urine 11/30/16 09:09 Urine Color Yellow (YELLOW) 11/30/16 09:09 Urine Appearance Hazy (CLEAR) 11/30/16 09:09 Urine pH 5.0 (5.0 - 8.0) 11/30/16 09:09 Ur Specific [place] 1.010 (1.000-1.030) 11/30/16 09:09 Urine Protein Negative (NEGATIVE) 11/30/16 09:09 Urine Glucose (UA) Negative (NEGATIVE) 11/30/16 09:09 Urine Ketones Negative (NEGATIVE) 11/30/16 09:09 Urine Occult Blood Negative (NEGATIVE) 11/30/16 09:09 Urine Nitrite Negative (NEGATIVE) 11/30/16 09:09 Urine Bilirubin Negative (NEGATIVE) 11/30/16 09:09 Urine Urobilinogen Normal (NORMAL) 11/30/16 09:09 Ur Leukocyte Esterase 1+ (NEGATIVE) 11/30/16 09:09 Urine RBC 0-2 /HPF (NEGATIVE) 11/30/16 09:09 Urine WBC 0-2 /HPF (NEGATIVE) 11/30/16 09:09 Ur Squamous Epith Cells Rare /HPF (NEGATIVE) 11/30/16 09:09 Urine Bacteria Trace /HPF (NEGATIVE) 11/30/16 09:09 Ur Culture Indicated? No/not indicated 11/30/16 09:09 - Plan (1) Acute bronchitis Status: Acute Qualifiers: Bronchitis organism: other organism Qualified Code(s): J20.8 - Acute bronchitis due to other specified organisms Plan: jet nebs, solumendrol and levaquin (2) Chest pain Status: Acute Qualifiers: Chest pain type: precordial pain Ischemic chest pain type: I Qualified Code(s): R07.2 - Precordial pain Plan: continue to monitor (3) Respiratory distress Status: Acute Plan: jet nebs, supplemental oxygen (4) Anxiety Status: Chronic Plan: resume home medications (5) Hypothyroidism Status: Chronic Qualifiers: Hypothyroidism type: acquired Qualified Code(s): E03.9 - Hypothyroidism, unspecified Plan: resume home medications (6) Elevated liver enzymes Status: Acute Plan: abdominal CT with contrast
--- NOTE | 2016-12-02 16:54 | CT ---
CT abdomen with contrast Indication: Abnormal LFTs Comparison: 11/26/2016 Technique: Multiple axial images of the abdomen were obtained from the lung bases to the iliac crests after the administration of IV contrast. Coronal and sagittal reformatted images were also provided. Radiation dose reduction techniques were performed utilizing adjustment for MA/kVP based on patient body size. Findings: The lung bases are clear. There is focal fatty infiltration adjacent to the falciform ligament. Tiny round hypoattenuating lesion measuring approximate 2 mm within the right hepatic dome on image 17. The liver is normal in configuration and without focal hepatic lesion. Prior cholecystectomy is note d. The common bile duct is mildly dilated measuring 11 mm. There is no obstructing stone or mass anai ntified. There is a small gas-filled diverticulum adjacent to the common bile duct arising from the 2nd portion the duodenum. The spleen, pancreas and adrenal glands are normal. The right kidney is wi thout evidence of nephrolithiasis hydronephrosis or mass. There is a small exophytic cyst arising fr om the upper pole the right kidney. All the left kidney is also without evidence of nephrolithiasis, hydronephrosis or mass. No hydronephrosis. The visualized portions of the upper lower GI tract demo nstrates a small sliding hiatal hernia otherwise are unremarkable. No adenopathy or free fluid withi n the abdomen. Abdominal aorta is normal in caliber with scattered calcified atherosclerotic disease . Impression: 1.Normal configuration of the liver . Tiny round hypoattenuating area within the right hepatic dome measures approximate 2 mm likely representing a cyst; however too small to accurately characterize. Mild focal fatty infiltration noted adjacent to the falciform ligament. No enhancing or solid mass w ithin the liver. 2. Mild extrahepatic bile duct dilatation , likely in the setting of prior cholecystectomy as no obs tructing stone or mass identified. Correlation with cholestatic function test is recommended. 3. Several incidental findings as described above. Reported By:
[2016-12-02] MEDS: SYNTHROID 50 mcg TAB PO SCH (21:32)
[2016-12-02] MEDS: XANAX PO SCH (21:32)
[2016-12-02] MEDS: ARICEPT TAB 10 MG PO SCH (21:33)
[2016-12-03] MEDS: DUONEB 0.5 MG/3 MG NEB SCH ×2 (01:05→06:19)
[2016-12-03] MEDS: NS 1000 ML 1,000 ML IV SCH ×2 (01:44→05:28)
[2016-12-03 04:58] LABS: ALBUMIN 2.8 g/dL (3.4-5.0); C-REACTIVE PROTEIN 3.1 mg/L (0-3.0); CALCIUM 8.7 mg/dL (8.5-10.1); CARBON DIOXIDE 20.9 mmol/L (21-32); COR CA(FOR HYPOALB) 9.7 mg/dL (8.5-10.1); CREATININE 1.47 mg/dL (0.55-1.02); TOTAL PROTEIN 6.2 g/dL (6.4-8.2)
[2016-12-03 05:09] LABS: BASOPHILS % (AUTO) 0.1 % (0.2-1.0); HEMATOCRIT 26.2 % (36.0-47.0); HEMOGLOBIN 8.7 g/dL (12.0-16.0); LYMPHOCYTES # (AUTO) 1.1 X10^3/uL (1.3-2.9); LYMPHOCYTES % (AUTO) 7.4 % (21.0-51.0); MEAN CORPUSCULAR HEMOGLOBIN 28.5 pg (27.0-34.0); MEAN CORPUSCULAR HGB CONC 33.1 g/dL (33.0-35.0); MEAN CORPUSCULAR VOLUME 86.1 fL (80.0-100.0); MEAN PLATELET VOLUME 8.7 fL (7.4-11.0); MONOCYTES # (AUTO) 0.2 x10^3/uL (0.3-0.8); MONOCYTES % (AUTO) 1.7 % (0.0-13.0); NEUTROPHILS % (AUTO) 90.8 % (42.0-75.0); PLATELET COUNT 233 X10^3/uL (150.0-450.0); RED BLOOD COUNT 3.04 X10^6/uL (3.5-5.4); WHITE BLOOD COUNT 14.3 X10^3/uL (3.6-10.0)
[2016-12-03 05:30] LABS: PLATELET MORPHOLOGY COMMENT NORMAL (NORMAL)
[2016-12-03 05:31] LABS: ERYTHROCYTE SEDIMENTATION RATE 58 MM/HOUR (0-20)
[2016-12-03] MEDS: SOLU-Medrol 40 MG VIAL IVP SCH (05:43)
[2016-12-03 08:36] VITALS: BP 166/69
[2016-12-03] MEDS ORDERED: FERROUS SULFATE PO SCH (09:00)
[2016-12-03] MEDS: LEVAQUIN PREMIX IV 500 MG 500 MG/100 ML BAG IV SCH (09:26)
[2016-12-03] MEDS: COREG TAB 12.5 MG PO SCH (09:27)
[2016-12-03] MEDS: ROBITUSSIN DM PO SCH (09:27)
[2016-12-03] MEDS: CARAFATE SUSP 1 GM/10 ML PO SCH (09:27)
[2016-12-03] MEDS: ZESTRIL TAB 10 MG PO SCH (09:27)
[2016-12-03] MEDS: MAXZIDE 37.5/25 MG PO SCH (09:28)
[2016-12-03] MEDS: TOVIAZ PO SCH (09:28)
[2016-12-03] MEDS: ZANTAC PO SCH (09:28)
[2016-12-03] MEDS: LIPITOR TAB 40 MG PO SCH (09:28)
[2016-12-03] MEDS: PLAVIX PO SCH (09:32)
[2016-12-03] MEDS: VITAMIN B-12 PO SCH (09:41)
--- NOTE | 2016-12-04 10:29 | DR.CARTERD ---
- Discharge Summary for: Discharge Summary for Date of:: 12/03/16 - Admission Date Date of Admission: 11/30/16 - Admission Diagnoses Admission Diagnosis: Acute Bronchitis Chest Pain Respiratory Distress Hypertension Hypothyroidism Anxiety - Discharge Date Discharge Date: 12/03/16 - Discharge Diagnoses Discharge Diagnosis: Acute Bronchitis Chest Pain Respiratory Distress Hypertension Hypothyroidism Anxiety - Hospital Course Hospital Course: Patient is a 71 yo white female who presented to the ER on 11/30 with complains of chest tightness and shortness of breath, patient also had an elevated BUN and creatinine. Patient has responded well to treatment with Levaquin IV as solumedrol breathing treatment and supplemental oxygen. Patient states she is feeling much better. We are going to discharge home in stable condition and she is to follow up in 1 week. Patient is being discharge with Levaquin 500mg Po Daily, Tussionex 5ml Po BID PRN, Tessalon Perles 200mg TID PRN Labs: Labs within normal limits with the exception of WBC 14.3, RBC .04, Hgb 8.7, Hct 26.2, Neut% 90.8, Lymph% 7.4, Eos% 0.0, Baso% 0.1, Neut# 13.0, Lymph# 1.1, Sunflower # 0.2, ESR 58, Chloride 109, Carbon Dioxide 20.9, BUN 27, Creatinine 1.47, Est GFR 37, Glucose 151, Alkaline Phosphate 178, CRP 3.10, Total Protein 6.2, Albumin 2.8 - Discharge Medications Discharge Medications: Clopidogrel Bisulfate [PLAVIX TAB 75 MG *] 1 tab PO DAILY 11/30/16 [History] Ferrous Sulfate [FERROUS SULFATE *] 65 mg PO DAILY 11/30/16 [History] Lisinopril [ZESTRIL *] 1 tab PO DAILY 11/30/16 [History] Quetiapine Fumarate [SEROQUEL 25 MG *] 1 tab PO HS 11/30/16 [History] Ranitidine HCl [ZANTAC TAB 150 MG *] 300 mg PO BID 11/30/16 [History] Sucralfate [CARAFATE ORAL SUSP 1 GM/10 ML *] 1 ml PO QID 11/30/16 [History] Benzonatate [TESSALON PERLES *] 200 mg PO TID PRN #30 cap 12/03/16 [Rx] Hydrocodone Polist/Chlorphenir [Tussionex Pennkinetic Susp] 5 ml PO Q12H PRN # 60 ml 12/03/16 [Rx] Levofloxacin [Levaquin Tab 500 mg] 500 mg PO Q24H #7 tab 12/03/16 [Rx] - Discharge Disposition Discharge Disposition: Home
== END 2016-12-03 11:40 | disposition home or self-care (01) | DRG 203 ==
LOC: ER 07:48 → MED/SURG 11:09
PROVIDERS: ADMIT Internal Medicine; ATTEND Internal Medicine
DX: J20.8 Acute bronchitis due to other specified organisms (principal); R07.2 Precordial pain; R06.00 Dyspnea, unspecified; R94.31 Abnormal electrocardiogram [ECG] [EKG]; R06.02 Shortness of breath; R53.1 Weakness; K21.9 Gastro-esophageal reflux disease without esophagitis; I10 Essential (primary) hypertension; E03.8 Other specified hypothyroidism; R94.4 Abnormal results of kidney function studies; F41.8 Other specified anxiety disorders; R74.8 Abnormal levels of other serum enzymes; R79.1 Abnormal coagulation profile
CPT/HCPCS: 36415; 71010; 71020; 74160; 78582; 80053; 81001; 82150; 82550; 82553; 83690; 83880; 84484; 85025; 85378; 85652; 86140; 93005; 94640; 94760; 96365; 99221; 99284; A4222; J0696; J1956; J2920; J7620

== ENCOUNTER 2016-12-18 07:30 | Day surgery (SDC) | payer OTHER ==
[2016-12-18] MEDS ORDERED: D5 LR 1000 ML 1,000 ML IV ONE (07:52)
[2016-12-18] MEDS ORDERED: DIPRIVAN VIAL 10 ML ONE ×2 (09:36→09:49)
[2016-12-18 12:18] VITALS: BP 115/62
== END 2016-12-18 10:27 | disposition home or self-care (01) ==
LOC: SURG1 07:30
PROVIDERS: ATTEND Internal Medicine Gastroenterology
PROC: 0DJ08ZZ Inspection of Upper Intestinal Tract, Via Natural or Artificial Opening Endoscopic (ICD-10-PCS; principal; 2016-12-18 11:15)
PROC: 0DB68ZX Excision of Stomach, Via Natural or Artificial Opening Endoscopic, Diagnostic (ICD-10-PCS; principal; 2016-12-18 11:15)
PROC: 0DB88ZX Excision of Small Intestine, Via Natural or Artificial Opening Endoscopic, Diagnostic (ICD-10-PCS; principal; 2016-12-18 11:15)
DX: R10.13 Epigastric pain (principal); K92.2 Gastrointestinal hemorrhage, unspecified; K21.9 Gastro-esophageal reflux disease without esophagitis; K29.60 Other gastritis without bleeding; K20.8 Other esophagitis
CPT/HCPCS: 99100; A4217; J3490; J7120

== ENCOUNTER 2017-03-04 23:24 | Emergency (ER) | payer OTHER ==
[2017-03-04 23:37] VITALS: BP 167/76; BMI 38.3
--- NOTE | 2017-03-04 23:53 | DR.GENAD ---
HPI - PCP Primary Care Physician: HELDER - Complaint/Symptoms Chief Complaint Doctors Comments: Patient has a history of right lower extremity edema associated with pain. Has been on maximum strength analgesic to include fentyl 100mg for relief. Patient states that she has pain of the lower extremity earlier today and decided to get checked. She sustained an injury to the knee and following the injury the extremity has been painful and swollen Chief Complaint:: RIGHT KNEE PAIN, RIGHT KNEE EDEMA - Source History Provided: Patient, Significant Other - Mode of Arrival Mode of Arrival: Wheelchair - Timing Onset of Chief Complaint: 03/04/17 PMH - PMH Past Medical History: Yes Past Medical History: Anxiety, CVA, Dementia, GERD, Hypertension, Hypothyroidism , [place] Past Surgical History: Yes Surgical History: Appendectomy, Cholecystectomy, Hysterectomy, Joint Replacement , Ortho Surgery, Tonsillectomy - Family History History of Family Medical Conditions: Yes Family Medical History: [place], Coronary Artery Disease, Sudden Cardiac , Hypertension - Social History Do you use any recreational Drugs:: No Lives With: Spouse Lives Where: Home - infectious screening Have you traveled outside the country in the last 6 months?: No Isolation: Standard ROS - Review of Systems Eyes: No Symptoms Reported ENTM: No Symptoms Reported Respiratoy: No Symptoms Reported Cardiovascular: No Symptoms Reported Gastrointestinal/Abdominal: No Symptoms Reported Genitourinary: No Symptoms Reported Neurological: No Symptoms Reported Musculoskeletal: No Symptoms Reported Integumentary: No Symptoms Reported Hematologic/Lymphatic: No Symptoms Reported Endocrine: No Symptoms Reported Psychiatric: No Symptoms Reported All Other Systems: Reviewed and Negative PE - Vital Signs Vitals: Temperature 98.0 F Pulse Rate 92 Respiratory Rate 20 Blood Pressure [Right Arm] 166/69 Blood Pressure [Left Arm] 137/79 Blood Pressure 167/76 O2 Sat by Pulse Oximetry 95 - General Limitations: No Limitations General Appearance: Alert, In Distress - Head Head Exam: Normal Inspection, Atraumatic - Eyes Eye exam: Normal Appearance, PERRL, EOMI - ENT ENT Exam: Normal Exam External Ear Exam: Normal External Inspection TM/Canal Exam: Bilateral Normal Nose Exam: Normal Nose Exam Mouth Exam: Normal Inspection Throat Exam: Normal Inspection - Neck Neck Exam: Normal Inspection, Full ROM - Chest Chest Inspection: Normal Inspection, Symmetric Chest Wall Rise - Respiratory Respiratory Exam: Normal Lung Sounds Bilat Respiratory Exam: Bilateral Clear to Auscultation - Cardiovascular Cardiovascular Exam: Regular Rate, Normal Rhythm - Abdominal Exam Abdominal Exam: Normal Inspection, Normal Bowel Sounds Abdominal Tenderness: negative: RUQ, RLQ, LUQ, LLQ, Epigastrium, Suprapubic, Diffuse, Mild, Moderate, Severe, Other - Extremities Extremities Exam: Tenderness, Edema, Calf Tenderness (of right lower extremity) - Back Back Exam: Normal Inspection - Neurologic Neurological Exam: Alert, Oriented X3 - Psychiatric Psychiatric Exam: Normal Affect, Normal Mood - Skin Skin Exam: Warm, Dry, Intact Course - Reevaluation 1st: Improved ROR - Labs Reviewed Result Diagrams: 03/05/17 00:00 03/05/17 00:00 Laboratory: WBC 10.0 X10^3/uL (3.6-10.0) 03/05/17 00:00 RBC 4.18 X10^6/uL (3.5-5.4) 03/05/17 00:00 Hgb 11.1 g/dL (12.0-16.0) L 03/05/17 00:00 Hct 34.2 % (36.0-47.0) L 03/05/17 00:00 MCV 81.9 fL (80.0-100.0) 03/05/17 00:00 MCH 26.5 pg (27.0-34.0) L 03/05/17 00:00 MCHC 32.3 g/dL (33.0-35.0) L 03/05/17 00:00 RDW 16.1 % (11.6-16.5) 03/05/17 00:00 Plt Count 340 X10^3/uL (150.0-450.0) 03/05/17 00:00 MPV 8.5 fL (7.4-11.0) 03/05/17 00:00 Neut % 76.8 % (42.0-75.0) H 03/05/17 00:00 Lymph % 14.1 % (21.0-51.0) L 03/05/17 00:00 Fallon % 7.3 % (0.0-13.0) 03/05/17 00:00 Eos % 1.2 % (0.9-2.9) 03/05/17 00:00 Baso % 0.6 % (0.2-1.0) 03/05/17 00:00 Neut # 7.7 x10^3/uL (2.2-4.8) H 03/05/17 00:00 Lymph # 1.4 X10^3/uL (1.3-2.9) 03/05/17 00:00 Fallon # 0.7 x10^3/uL (0.3-0.8) 03/05/17 00:00 Eos # 0.1 x10^3/uL (0.0-0.2) 03/05/17 00:00 Baso # 0.1 X10^3/uL (0.0-0.1) 03/05/17 00:00 Absolute Nucleated RBC 0.0 /100WBC 03/05/17 00:00 D-Dimer 1850 ng/mL (0-400) H* 03/05/17 00:00 Sodium 138 mmol/L (136-145) 03/05/17 00:00 Corrected Sodium 139 mmol/L (136-145) 03/05/17 00:00 Potassium 4.3 mmol/L (3.5-5.1) 03/05/17 00:00 Chloride 106 mmol/L (98-107) 03/05/17 00:00 Carbon Dioxide 27.0 mmol/L (21-32) 03/05/17 00:00 BUN 22 mg/dL (7-18) H 03/05/17 00:00 Creatinine 1.28 mg/dL (0.55-1.02) H 03/05/17 00:00 Est GFR (MDRD) Af Amer 53 (>60) L 03/05/17 00:00 Est GFR (MDRD) Non-Af 44 (>60) L 03/05/17 00:00 Glucose 134 mg/dL (65-99) H 03/05/17 00:00 Calcium 8.8 mg/dL (8.5-10.1) 03/05/17 00:00 Corrected Calcium 9.4 mg/dL (8.5-10.1) 03/05/17 00:00 Total Bilirubin 0.20 mg/dL (0.2-1.0) 03/05/17 00:00 AST 12 Units/L (15-37) L 03/05/17 00:00 ALT 19 Units/L (12-78) 03/05/17 00:00 Alkaline Phosphatase 108 Units/L (46-116) 03/05/17 00:00 Total Protein 7.1 g/dL (6.4-8.2) 03/05/17 00:00 Albumin 3.3 g/dL (3.4-5.0) L 03/05/17 00:00 Globulin 3.8 g/dL (2.5-4.5) 03/05/17 00:00 Albumin/Globulin Ratio 0.9 Ratio (1.1-2.1) L 03/05/17 00:00 - XRAY XRAY Interpreted by: Radiologist (CT: chest: no PE, Doppler US right lower extremity; no DVT) - Diagnosis Discharge Problem: Right knee pain Qualifiers: Chronicity: chronic Qualified Code(s): M25.561 - Pain in right knee; G89.29 - Other chronic pain - Discharge Plan Condition: Stable - Follow ups/Referrals Follow ups/Referrals: Joe Kimble [Primary Care Provider] - 3 days - Instructions
[2017-03-04] MEDS ORDERED: DILAUDID INJ IM ONE (23:55)
[2017-03-04] MEDS ORDERED: DILAUDID INJ ONE (23:59)
[2017-03-05 00:50] LABS: BASOPHILS # (AUTO) 0.1 X10^3/uL (0.0-0.1); BASOPHILS % (AUTO) 0.6 % (0.2-1.0); EOSINOPHILS # (AUTO) 0.1 x10^3/uL (0.0-0.2); EOSINOPHILS % (AUTO) 1.2 % (0.9-2.9); HEMATOCRIT 34.2 % (36.0-47.0); HEMOGLOBIN 11.1 g/dL (12.0-16.0); LYMPHOCYTES # (AUTO) 1.4 X10^3/uL (1.3-2.9); LYMPHOCYTES % (AUTO) 14.1 % (21.0-51.0); MEAN CORPUSCULAR HEMOGLOBIN 26.5 pg (27.0-34.0); MEAN CORPUSCULAR HGB CONC 32.3 g/dL (33.0-35.0); MEAN CORPUSCULAR VOLUME 81.9 fL (80.0-100.0); MEAN PLATELET VOLUME 8.5 fL (7.4-11.0); MONOCYTES # (AUTO) 0.7 x10^3/uL (0.3-0.8); MONOCYTES % (AUTO) 7.3 % (0.0-13.0); NEUTROPHILS # (AUTO) 7.7 x10^3/uL (2.2-4.8); NEUTROPHILS % (AUTO) 76.8 % (42.0-75.0); PLATELET COUNT 340 X10^3/uL (150.0-450.0); RED BLOOD COUNT 4.18 X10^6/uL (3.5-5.4); RED CELL DISTRIBUTION WIDTH 16.1 % (11.6-16.5)
[2017-03-05 00:57] LABS: ALBUMIN 3.3 g/dL (3.4-5.0); CALCIUM 8.8 mg/dL (8.5-10.1); COR CA(FOR HYPOALB) 9.4 mg/dL (8.5-10.1); CREATININE 1.28 mg/dL (0.55-1.02); TOTAL PROTEIN 7.1 g/dL (6.4-8.2)
--- NOTE | 2017-03-05 02:34 | CT ---
EXAM: CTA CHEST WITH CONTRAST INDICATION: Chest pain COMPARISION: No priors for comparison TECHNIQUE: Spiral CT of the chest was performed with contrast. Thin reconstructions in the axial and para-saenz l planes were obtained as well as 3D reconstructions. The patient received intravenous contrast with out adverse reaction. FINDINGS: The heart size is normal. There is no evidence of a pulmonary embolism. The aorta is normal in calibe r. No evidence of dissection or aneurysm. No mediastinal or hilar mass or adenopathy. The lungs are clear. No evidence of bullous disease or pulmonary fibrosis. No lung mass, consolidatio n, or suspicious pulmonary nodule. No pleural effusion or pneumothorax identified. The regional skele ton is intact. IMPRESSION: Normal CT angiogram of the chest. Reported By:
[2017-03-05] MEDS ORDERED: MORPHINE SULFATE INJ 4 MG IVP ONE (02:50)
[2017-03-05] MEDS ORDERED: MORPHINE SULFATE INJ 4 MG ONE (02:51)
--- NOTE | 2017-03-05 04:17 | VAS ---
Exam: Bilateral lower extremity ultrasound exam History: Lower extremity swelling/pain Comparison: None Technique: Real-time duplex scan of the lower extremity venous system was performed using B-mode/chung scale imaging, Doppler spectral analysis, and color flow. Findings: Evaluation of the deep veins of both lower extremities from the common femoral vein throug h the popliteal vein demonstrated normal patency and no evidence of DVT. There was normal compressib ility throughout the deep venous system. There was normal augmentation response, Valsalva response, and respiratory phasicity. The deep veins below the knee were patent. Conclusion: Normal bilateral lower extremity venous exam. No evidence of DVT. Reported By:
== END 2017-03-05 04:57 | disposition home or self-care (01) ==
LOC: ER 23:24
DX: M25.561 Pain in right knee (principal); G89.29 Other chronic pain
CPT/HCPCS: 36415; 71275; 80053; 85025; 85378; 93970; 96365; 96372; 96374; 99283; A4222; J2270

== ENCOUNTER 2017-08-22 16:53 | Emergency (ER) | payer OTHER ==
[2017-08-22 17:05] VITALS: BP 138/87; BMI 37.3
[2017-08-22] MEDS ORDERED: PHENERGAN INJ 25 MG IM ONE (17:29)
[2017-08-22] MEDS ORDERED: PHENERGAN INJ 25 MG ONE (17:31)
--- NOTE | 2017-08-22 17:32 | DR.NAUSEAF ---
HPI - Time Seen Time seen: 17:25 - Primary Care Physician Primary Care Physician: DR. KIMBLE - Complaints Chief Complaint Doctors Comments: Nausea since starting Cipro on 08/17/17 for UTI (culture nased). She has used Zofran prn for the nausea but it doesn't seem to help. Chief Complaint:: PT C/O SEEING DERRICK IVERSON IN [place] FOR RECURRING UTI'S AND SHE WAS CALLED WITH A UA CULTURE AND HER ABX WERE CHANGED TO CIPRO ON 08/17/17 AND SHE HAD VOMITTED AND BEEN DIZZY SINCE THEN". Self Treatment fo Chief Complaint: ZOFRAN 4 MG 2 HOURS AGO AND NO RELIEF. - Reviewed Nurses Notes Reviewed: Yes - Source History Provided: Patient - Mode of Arrival Mode of Arrival: Ambulatory - Timing Onset of Chief Complaint: 08/17/17 PMH - PMH Past Medical History: Yes Past Medical History: Anxiety, CVA, Dementia, GERD, Hypertension, Hypothyroidism , [place] Past Surgical History: Yes Surgical History: Appendectomy, Cholecystectomy, Hysterectomy, Joint Replacement , Ortho Surgery, Tonsillectomy Past Surgical History Comment: RIGHT KNEE REPLACEMENT. - Family History History of Family Medical Conditions: Yes Family Medical History: [place], Coronary Artery Disease, Sudden Cardiac , Hypertension - Social History Does patient currently use any type of tobacco product: No Have you used tobacco products in the last 12 months: No Type of Tobacco Use: None Does any household member use tobacco: No Alcohol Use: None Do you use any recreational Drugs:: No Lives With: Family Lives Where: Home - infectious screening In the last 2 months have you had wt loss of >10#?: NO Have you had fever, night sweats or hemotysis?: No Have you traveled outside the country in the last 6 months?: No Isolation: Standard ROS - Review of Systems Constitutional: No Symptoms Reported Eyes: No Symptoms Reported ENTM: No Symptoms Reported Respiratoy: No Symptoms Reported Cardiovascular: No Symptoms Reported Gastrointestinal/Abdominal: Nausea. negative: Abdominal Pain, Constipation, Diarrhea, Vomiting Genitourinary: No Symptoms Reported Neurological: No Symptoms Reported Musculoskeletal: No Symptoms Reported Integumentary: No Symptoms Reported Hematologic/Lymphatic: No Symptoms Reported Endocrine: No Symptoms Reported Psychiatric: No Symptoms Reported All Other Systems: Reviewed and Negative PE - Vital Signs Vitals: Temperature 96.2 F Pulse Rate 69 Respiratory Rate 20 Blood Pressure [Right Arm] 166/69 Blood Pressure [Left Arm] 137/79 Blood Pressure 138/87 O2 Sat by Pulse Oximetry 99 - General Limitations: No Limitations General Appearance: Alert, In No Apparent Distress - Head Head Exam: Normal Inspection - Eyes Eye exam: Normal Appearance - ENT ENT Exam: Normal Exam - Neck Neck Exam: Normal Inspection - Chest Chest Inspection: Normal Inspection - Respiratory Respiratory Exam: Normal Lung Sounds Bilat - Cardiovascular Cardiovascular Exam: Regular Rate, Normal Rhythm - Abdominal Exam Abdominal Exam: Normal Inspection - Extremities Extremities Exam: Normal Inspection - Back Back Exam: Normal Inspection - Neurologic Neurological Exam: Alert, Oriented X3 - Psychiatric Psychiatric Exam: Normal Affect, Normal Mood - Skin Skin Exam: Warm, Dry, Intact, Normal Color - Diagnosis Discharge Problem: Nausea - Discharge Plan Disposition: 01 HOME, SELF-CARE Condition: Stable - Follow ups/Referrals Follow ups/Referrals: Joe Kimble [Primary Care Provider] - 3 days - Instructions
== END 2017-08-22 17:54 | disposition home or self-care (01) ==
LOC: ER 17:08
DX: R11.0 Nausea (principal)
CPT/HCPCS: 96372; 99282; J2550